=== PATIENT | female | born 1955 | race Caucasian/White ===

== ENCOUNTER → 2020-09-08 13:16 | Outpatient (CLI) | payer MEDICARE, BC, SELFPAY ==
--- NOTE | ~2020-09-08 | DEXA_ITS ---
Bone Density Report Name: Emma Washburn Age: 65 Sex: Female Ethnicity: White Date of : 1955 Indication: postmenopausal; screening for osteoporosis; parental hip fracture; Referring Provider: Calvin, Flores Cordova Study: Bone densitometry was performed. Exam Date: September 08, 2020 Accession number: [id number] Bone Density: Region BMD T-score Z-score Classification AP Spine (L1, L2, L3) 1.068 0.5 2.3 Normal Femoral Neck (Left) 0.645 -1.8 -0.2 Osteopenia Total Hip (Left) 0.825 -1.0 0.4 Normal Femoral Neck (Right) 0.564 -2.6 -0.9 Osteoporosis Total Hip (Right) 0.834 -0.9 0.5 Normal Total Hip Mean 0.830 -1.0 0.5 Normal World Health Organization criteria for BMD impression classify patients as: Normal (T-score at or above -1.0), Osteopenia (T-score between -1.0 and -2.5), or Osteoporosis (T-score at or below -2.5). 10-year Fracture Risk: FRAX not reported because: Some T-score for Spine Total or Hip Total or Femoral Neck at or below -2.5 Previous Exams: Region Exam Age BMD T-score BMD Change BMD Change Date g/cm2 vs Baseline vs Previous AP Spine(L1, L2, L3) 09/08/2020 65 1.068 0.5 -0.216* -0.087* 04/01/2016 60 1.155 1.2 -0.129* -0.037* 12/17/2012 57 1.191 1.6 -0.092* -0.020 11/18/2009 54 1.212 1.8 -0.072* -0.011 07/04/2007 52 1.223 1.9 -0.061* -0.061* 06/20/2005 50 1.283 2.4 Total Hip(Left) 09/08/2020 65 0.825 -1.0 -0.111* -0.063* 04/01/2016 60 0.888 -0.4 -0.048* 0.000 12/17/2012 57 0.888 -0.4 -0.048* -0.036* 11/18/2009 54 0.924 -0.1 -0.012 0.025 07/04/2007 52 0.899 -0.4 -0.037* -0.037* 06/20/2005 50 0.936 -0.1 Total Hip(Right) 09/08/2020 65 0.834 -0.9 -0.150* -0.001 04/01/2016 60 0.835 -0.9 -0.149* -0.041* 12/17/2012 57 0.876 -0.5 -0.108* 0.017 11/18/2009 54 0.859 -0.7 -0.125* -0.029* 07/04/2007 52 0.888 -0.4 -0.096* -0.096* 06/20/2005 50 0.984 0.3 *Denotes significance at 95% confidence level, LSC for AP Spine = 0.022 g/cm2, LSC for Total Hip = 0.027 g/cm2 Clinical Information Provided by Patient: Parent has had a hip fracture Has used the following medications: Vitamin D, MTV Patient maximum height was 67.5 Menopause Age: 54 Drinks caffeinated beverages
--- NOTE | ~2020-09-08 | MM_ITS ---
EXAMINATION: MM screening phuong BI w maylin HISTORY: Screening mammogram TECHNIQUE: Craniocaudal and mediolateral oblique 3-D tomosynthesis images were obtained and synthetic 2-D images were generated. CAD analysis was submitted and interpreted. COMPARISON: 07/12/2019, 05/21/2018, 05/15/2017 bilateral digital screening mammogram examinations BREAST PARENCHYMAL COMPOSITION: There are scattered areas of fibroglandular density. FINDINGS: There is no evidence of suspicious mass, calcification, or architectural distortion to sugg est malignancy in either breast. There has been no suspicious interval change. IMPRESSION: 1. No mammographic evidence of malignancy. 2. Recommend routine screening mammography in one year. BI-RADS Category 1: Negative Reviewed, dictated and finalized at location A.
== END ==
PROVIDERS: PCP Family Medicine; Visit Provider Nurse Practitioner Obstetrics & Gynecology
DX: Z12.31 Encounter for screening mammogram for malignant neoplasm of breast (principal); M81.0 Age-related osteoporosis without current pathological fracture; Z78.0 Asymptomatic menopausal state; Z13.820 Encounter for screening for osteoporosis
CPT/HCPCS: 77063; 77067; 77080